=== PATIENT | female | born 1985 | race Caucasian/White ===

== ENCOUNTER → 2022-12-27 16:05 | Outpatient (BNVA) | payer MEDICAID, SELFPAY | PROVIDERS: Family Provider Family Medicine; PCP Nurse Practitioner Family; Visit Provider Nurse Practitioner Family | DX: R39.9 Unspecified symptoms and signs involving the genitourinary system (principal); R10.9 Unspecified abdominal pain; I10 Essential (primary) hypertension; E78.5 Hyperlipidemia, unspecified; R53.83 Other fatigue; L98.9 Disorder of the skin and subcutaneous tissue, unspecified | CPT/HCPCS: 81000 ==

== ENCOUNTER → 2022-12-30 08:39 | Outpatient (BNVA) | payer MEDICAID, SELFPAY | PROVIDERS: Family Provider Family Medicine; PCP Nurse Practitioner Family; Visit Provider Nurse Practitioner Family | DX: E78.5 Hyperlipidemia, unspecified (principal); I10 Essential (primary) hypertension; R53.83 Other fatigue; R10.9 Unspecified abdominal pain | CPT/HCPCS: 80053; 80061; 85025 ==

== ENCOUNTER 2023-01-11 06:03 | Outpatient (CLI) | payer MEDICAID, SELFPAY ==
--- NOTE | 2023-01-11 06:15 | US_ITS ---
WS: [id number] ULTRASOUND ABDOMEN LIMITED CLINICAL INFORMATION: R10.811 - Right upper quadrant abdominal tenderness COMPARISON: None. FINDINGS: Liver Size: Normal. Craniocaudal length: 15.0 cm. Echogenicity: Normal. Surface nodularity: None. Mass (size and location): None. Bile ducts Intrahepatic ducts: Normal. Common bile duct diameter: 0.3 cm. Gallbladder Normal. Gallstones: None. Gallbladder sludge: None. Gallbladder wall thickening: None. Pericholecystic fluid: None. Sonographic Reynaga sign: Absent. Pancreas Normal as visualized. Right kidney: Prominent extrarenal pelvis with dilated proximal ureter. Mild RIGHT hydronephrosis Hydronephrosis: Mild Size: 11.1 cm x 5.6 cm x 4.5 cm. Abdominal aorta and IVC Visualized portions are normal. Ascites: None. IMPRESSION: 1. Normal liver. 2. Normal gallbladder. 3. Normal common bile duct. 4. Prominent extrarenal pelvis with dilated proximal ureter. Mild RIGHT hydronephrosis. Recommend fu rther evaluation with noncontrast CT abdomen pelvis to assess for ureteral obstruction.
== END 2023-01-11 06:04 | disposition home or self-care (01) ==
LOC: RAD 06:04
PROVIDERS: Family Provider Family Medicine; PCP Nurse Practitioner Family; Visit Provider Nurse Practitioner Family
DX: R10.811 Right upper quadrant abdominal tenderness (principal); Z78.9 Other specified health status; Z98.891 History of uterine scar from previous surgery; N13.30 Unspecified hydronephrosis; N28.82 Megaloureter
CPT/HCPCS: 76705

== ENCOUNTER 2023-01-20 16:22 | Outpatient (CLI) | payer MEDICAID, SELFPAY ==
--- NOTE | 2023-01-20 16:30 | CTR_ITS ---
PROCEDURE INFORMATION: Exam: CT Abdomen And Pelvis Without Contrast Exam date and time: 01/20/2023 4:32 PM Age: 37 years old Clinical indication: Abdominal pain; Localized; Right lower quadrant (rlq); Prior surgery; Surgery date: 6+ months; Surgery type: Tubal, x3; Additional info: R93.5 - abnormal findings on diagnostic imaging of other . . . TECHNIQUE: Imaging protocol: Computed tomography of the abdomen and pelvis without contrast. Axial, coronal and sagittal reformatted images were created and reviewed. Radiation optimization: All CT scans at this facility use at least one of these dose optimization techniques: automated exposure control; mA and/or kV adjustment per patient size (includes targeted exams where dose is matched to clinical indication); or iterative reconstruction. REPORTING DATA: Count of CT and Cardiac NM exams in prior 12 months: This patient has received 0 known CTs and 0 known cardiac nuclear medicine studies in the 12 months prior to the current study. COMPARISON: US gall bladder 09999 01/11/2023 6:12 AM RADIATION DOSE METRICS: Total DLP (mGy-cm): 252.63 FINDINGS: Diaphragm: Elevated left hemidiaphragm. Liver: Unremarkable. Gallbladder and bile ducts: No radiodense gallstones. No biliary ductal dilatation. Pancreas: Unremarkable. Spleen: Unremarkable. Adrenal glands: Normal. No mass. Kidneys and ureters: No mass. No radiodense calculi. No hydronephrosis. Stomach and bowel: No bowel wall thickening. No obstruction. No pneumatosis. Appendix: Normal. Intraperitoneal space: No free fluid. No organized fluid collection. No free air. Vasculature: Minimal atherosclerotic disease. No aneurysm. Lymph nodes: No pathologically enlarged lymph nodes. Urinary bladder: Unremarkable as visualized. Reproductive: Enlarged, lobulated uterus, likely due to fibroids. Bones/joints: No acute osseous abnormality. Soft tissues: Unremarkable. CT/CT abdomen pelvis wo con [id number] IMPRESSION: 1. Limited noncontrast examination without CT evidence of acute intra-abdominal or pelvic pathology. 2. Additional findings, as above.
== END 2023-01-20 16:23 | disposition home or self-care (01) ==
PROVIDERS: Family Provider Family Medicine; PCP Nurse Practitioner Family; Visit Provider Nurse Practitioner Family
DX: R93.5 Abnormal findings on diagnostic imaging of other abdominal regions, including retroperitoneum (principal); R10.31 Right lower quadrant pain
CPT/HCPCS: 74176

== ENCOUNTER → 2023-02-23 16:52 | Outpatient (BNVA) | payer MEDICAID, SELFPAY | PROVIDERS: Family Provider Family Medicine; PCP Nurse Practitioner Family; Visit Provider Nurse Practitioner Women's Health | DX: N92.0 Excessive and frequent menstruation with regular cycle (principal); Z12.4 Encounter for screening for malignant neoplasm of cervix | CPT/HCPCS: 84439; 84443; 87624 ==

== ENCOUNTER → 2023-03-07 13:09 | Outpatient (BNVA) | payer MEDICAID, SELFPAY | PROVIDERS: Family Provider Family Medicine; PCP Nurse Practitioner Family; Visit Provider Nurse Practitioner Women's Health | DX: N92.0 Excessive and frequent menstruation with regular cycle (principal); D25.9 Leiomyoma of uterus, unspecified | CPT/HCPCS: 76830 ==

== ENCOUNTER → 2023-04-06 13:50 | Outpatient (BNVA) | payer MEDICAID, SELFPAY | PROVIDERS: Family Provider Family Medicine; PCP Nurse Practitioner Family; Visit Provider Obstetrics & Gynecology | DX: Z01.818 Encounter for other preprocedural examination (principal) | CPT/HCPCS: 81025; 88305 ==

== ENCOUNTER 2023-05-09 14:22 | Observation (INO) | payer MEDICAID, SELFPAY ==
--- NOTE | 2023-05-03 10:58 | P.ANESASSM_ITS ---
Pre-Anesthetic Assessment Height/Weight: Height 1.65 m Preop Diagnosis: fibroid uterus, pelvic pain, dysreunia, enlarged uterus Operation Date: 05/09/23 13:40 Proposed Procedures p Total abdominal hysterectomy 84895 N85.2,D25.9, N94.10(Not Applicable) - Jose Luis Lundy MD Familial anesthetic complications: None Social Tobacco and No alcohol Exam alert, oriented x 3, clear to auscultation bilaterally and regular rate & rhythm Airway Mallampati: Class I Dentition: false GI Gastroesophageal Reflux Disease Anesthetic Plan ASA status: 1 Anesthesia: General Risk of > 500 ml blood loss (7ml/kg in children): Yes, adequate IV access and fluids planned Medications/Allergies Home Medications Medication Instructions Recorded Confirmed Last Taken Type No Known Home Medications 02/23/23 05/03/23 Unknown History Allergies Allergy/AdvReac Type Severity Reaction Status Date / Time ondansetron AdvReac Mild ADR-Chest Verified 05/03/23 10:32 Pain PFSH Anesthesia Medical History No pertinent past medical history neghx: htn,dm,thyroid,dvt/pe PCP: Em Golden Surgical History H/O tubal ligation (~2008) At time of her last H/O lumpectomy (~2000) Right breast--- benign History of 2004 2006 2008 Family History Mother Pancreatic cancer, Onset Age: 51 Stroke Father Bladder cancer Grandmother Diabetes Colon cancer Grandfather Diabetes Denies family history of Ovarian cancer Prostate cancer Brain cancer Heart disease Hyperlipidemia Hypertension Uterine cancer Thyroid disease Female Reproductive History Date of last menstrual period: 04/19/23 Data Anesthesia 05/03/23 10:55 05/03/23 10:55 Cardiac Studies: 2 No Data to Display
[2023-05-03 11:00] LABS: Basophils % 0.2 %; Eosinophils # 0.1 10^3/uL (0.0-0.8); Eosinophils % 0.8 %; Hematocrit 42.6 % (36-47); Lymphocytes % 20.1 %; Mean Corpuscular HGB Conc 33.1 g/dL (30-55); Mean Corpuscular Volume 90.6 fl (85-98); Monocytes # 0.5 10^3/uL (0.2-0.9); Monocytes % 4.7 %; Neutrophils % 73.8 %; Nucleated Red Blood Cells % 0 %; Platelet Count 191 10^3/cmm (157-399); Red Cell Distribution Width 13.5 % (12.1-15.1); White Blood Count 9.89 10^3/uL (3.29-11.43)
[2023-05-03 11:14] LABS: Add Urine Microscopic? YES; Bacteria Urine TRACE /hpf; Bilirubin Urine Neg (Negative); Blood Urine Neg (Negative); Glucose Urine UA Norm (Normal); Ketones Urine Negative (Negative); Leukocyte Esterase Urine Negative (Negative); Nitrate Urine Negative (Negative); Protein Urine Neg (Negative); RBC Urine RARE /hpf (0-2); Squamous Epithelial Cell Urine 15-25 /hpf (0-5); Urine Appearance SL Hazy (CLEAR); Urine Color Yellow (Yellow); Urobilinogen Urine Neg (Negative); pH Urine 6 (5-7)
[2023-05-03 11:15] LABS: Add Urine Culture? No; Amorphous Sediment Urine 3+ /hpf; Mucus Urine 3+ /hpf
[2023-05-03 11:25] LABS: Alanine Aminotransferase 18 U/L (0-33); Albumin Level 4.5 g/dL (3.5-5.2); Alkaline Phosphatase 53 U/L (35-105); Anion Gap 13.5 (5-19); Aspartate Amino Transferase 15 U/L (0-32); Blood Urea Nitrogen 13 mg/dL (6-20); Carbon Dioxide 25 mmol/L (22-29); Chloride 102 mmol/L (98-107); Globulin 2.3 g/dL (1.3-4.6); Glomerular Filtration Rate 111.3 mL/min (90-130); Glucose 88 mg/dL (65-115); Osmolality Calculated 282 mOsm/kg (285-295); Potassium 4.5 mmol/L (3.5-5.1); Sodium 136 mmol/L (136-145); Total Bilirubin 0.3 mg/dL (0.15-1.2); Total Protein 6.8 g/dL (6.6-8.7)
[2023-05-03 20:09] LABS: OR HCG Qualitative Urine Negative (Negative)
[2023-05-09] VITALS (22 sets, daily range): BP systolic 99–121; BP diastolic 57–75; PULSE 61–76; RESP 16–18; TEMP 36.2–36.8; O2SAT 96–100; BMI 22.6
[2023-05-09 07:42] LABS: OR HCG Qualitative Urine Negative (Negative)
[2023-05-09] MEDS: scopolamine 1.5 Patch 1 PATCH TRANSDERMA (08:00)
[2023-05-09] MEDS: sodium chloride 0.9% 500 ML IV (08:01)
[2023-05-09] MEDS: sodium chloride 0.9% 1,000 ML 30 ML IV (08:01)
--- NOTE | 2023-05-09 08:09 | P.ANESUD_ITS ---
Pre-Anesthetic Update Pre-Anesthetic Assessment: Date of Surgery/Procedure: 05/09/23 Preop Debra gnosis: fibroid uterus, pelvic pain, dysreunia, enlarged uterus Proposed Procedure: Operation Date: 05/09/23 09:00 Proposed Procedures p Total abdominal hysterectomy 75728 N85.2,D25.9, N94.10(Not Applicable) - Jose Luis Lundy MD Any changes to Pre-Anesthetic Assessment?: No Last Intake: Intake Last Liquid Date 05/08/23 Last Liquid Time 23:55 Last Solid Date 05/08/23 Last Solid Time 21:00 Vitals: Temperature 97.6 F 05/09/23 07:50 Temperature Source Temporal Artery S can 05/09/23 07:50 Pulse Rate 70 05/09/23 07:50 Respiratory Rate 16 05/09/23 07:50 Blood Pressure 116/74 05/09/23 07:50 Blood Pressure Padmini n 88 05/09/23 07:50 Pulse Oximetry 99 05/09/23 07:50 Oxygen Delivery Me thod Room Air 05/09/23 07:45 Exam: Pre-Anes Outpt Exam: alert and oriented x 3 Cardiac Studies: No Data to Display
--- NOTE | 2023-05-09 08:48 | W.PM.OPSUD ---
Surgery/Procedure H&P Update DATE OF PROCEDURE: May 09, 2023 DATE H&P PERFORMED: 05/03/23 H&P UPDATE INFORMATION: I have reviewed H&P completed within last 30 days, I have examined patient prior to procedure and No changes to prior documentation PREOP DIAGNOSIS: fibroid uterus, pelvic pain, dysreunia, enlarged uterus PLANNED PROCEDURE: Operation Date: 05/09/23 09:00 Proposed Procedures p Total abdominal hysterectomy 96665 N85.2,D25.9, N94.10(Not Applicable) - Jose Luis Lundy MD
[2023-05-09] MEDS: ceFOXitin 2,000 MG in sodium chloride 0.9% (plus) 50 ML 100 MG IV (08:53)
[2023-05-09] MEDS: BUPivacaine 0.5% INJ 30 mL INJECTION (09:29)
[2023-05-09] MEDS: BUPivacaine liposome 13.3 mg/mL SDV 10 mL 266 MG INJECTION (09:30)
--- NOTE | 2023-05-09 10:51 | P.OP_ITS ---
Operative Report Date of procedure: May 09, 2023 Pre-op diagnosis: Fibroid uterus Post-op diagnosis: same Post-op findings: Enlarged uterus Procedure done: Total abdominal hysterectomy Specimens removed/disposition: Uterus Surgeon: Jose Luis Lundy MD Estimated blood loss (mL): 200 IV fluids (mL): 1,600 Urine output (mL): 300 Complications: None Findings: Enlarged uterus Procedure: The patient was taken to the operating room, and after adequate level of general anesthesia was achieved, the patient was placed in the Trendelenburg position, prepped and draped in the usual sterile fashion. Subsequently, a Pfannenstiel incision was made and the incision was taken down to the fascia. The fascia was opened up sharply. The fascia was extended to the length of the incision using the Fry scissors. At this time, the rectus muscles were dissected from the fascia superiorly and inferiorly to the symphysis pubis. The midline rectus muscles were opened sharply and extended superiorly and inferiorly. The peritoneum was visualized, grasped, opened sharply, and extended superiorly and inferiorly towards the bladder. The abdominal contents were packed superiorly away from the operative site using the lap packs. At this time, the pelvic o rgans were noted. The inferior and superior blades were placed in place on the Sumeet self-retaining retractor. Bowel was packed away from the operative site. The fundus of the uterus was then grasped with a triple-tooth tenaculum and retracted out of the pelvic cavity into the abdominal site. At this point, Dorota clamps were placed in both right and left adnexal regions. Subsequently, using the LigaSure cautery unit, the round ligaments were grasped, cauterized, and dissected. The bladder flap was then formed and the bladder flap was pushed away down anteriorly over the lower uterine segment, pushed away from the operative site on both the right and left sides. Subsequently, the posterior leaf of the broad ligament was opened sharply and the LigaSure instrument was then placed below the level of the ovary in both the right and left side, care being taken not to damage bowel or uterus and the infundibulopelvic ligament was then grasped, cauterized, and again dissected. Further dissection of the broad ligament was carried down posteriorly towards the uterine vessels. The bladder was pushed inferiorly down towards the vagina. Subsequently, the uterine vessels were then grasped again with the LigaSure machine, cauterized, and dissected. The cardinal ligaments were further grasped, dissected, and suture ligated, again with the LigaSure machine. At that point, the LigaSure machine instrument was stopped and straight Zeppelin clamps were used on the cardinal ligaments down towards the uterosacral ligaments. The cardinal ligaments were grasped, dissected with a scalpel and then ligated with transfixion sutures with #1 Vicryl suture down to the uterosacral ligaments. The uterosacral ligaments were grasped, dissected, and suture ligated again with #1 Vicryl suture and transfixion sutures. At that time, the bladder had been pushed over the vagina and at this time right-angle Zeppelin clamps were placed on the vagina at the level of the cervix, and using the Kellee scissors, the cervix was dissected away from the vagina. At this time, the vaginal cuff was then closed using interrupted sutures of #1 Vicryl suture from the midline to each lateral corner. After the good hemostasis had been achieved in the vaginal cuff, both the right and left adnexa was visualized and no more bleeding was noted. The cuff was intact with no bleeding noted. The bladder was visualized and no bleeding was noted. Seprafilm was then placed over the vaginal cuff. The Sumeet self- retaining retractor was removed as well as the anterior and inferior blades. The lap packs were removed, and at this time, general closure of the abdomen was carried out. The peritoneum was closed with a 2-0 Vicryl suture and continuous running suture. The fascia was closed using a #1 Vicryl suture from each corner to the midline. Subcutaneous tissue was cauterized. No bleeding was noted. The subcutaneous tissue was then reapproximated using plain sutures and interrupted sutures, and the skin was closed using Insorb absorbable subcuticular bhavin. The patient tolerated the procedure well and was transferred to the recovery room in excellent condition. The patient returned to the floor for recovery.
[2023-05-09] MEDS: metoclopramide 5 mg/mL SDV 2 mL 10 MG IVP ×2 (12:01→12:08)
--- NOTE | 2023-05-09 14:02 | PC.NURSE ---
1400, report given to weaka2
[2023-05-09] MEDS: dextrose 5%-lactated ringers 1,000 ML 125 ML IV ×2 (15:11→22:03)
[2023-05-09] MEDS: ketorolac 30 mg/mL INJ IVP ×2 (15:12→20:51)
--- NOTE | 2023-05-09 16:28 | ANE.PACU2 ---
Inpatient post-anesthesia follow up: Airway intact: Yes Vital signs: Temperature 98.2 F Pulse Rate 64 Respiratory Rate 18 Blood Pressure 114/70 Pulse Oximetry 98 Oxygen Delivery Me thod Room Air Oxygen Flow Rate 6 Fraction of Inspir ed Oxygen Hydration adequate: Yes Nausea and vomiting: No Pain level: 3 Mental status: Baseline
[2023-05-09] MEDS: docusate sodium 100 mg Capsule PO (17:23)
[2023-05-09] MEDS: acetaminophen 325 mg Tablet 650 MG PO (17:36)
[2023-05-09] MEDS: HYDROcodone-acetaminophen 5-325 mg Tablet PO (18:56)
[2023-05-10] VITALS: BP 95/59; PULSE 59; RESP 18; TEMP 36.8; O2SAT 97
[2023-05-10] MEDS: acetaminophen 325 mg Tablet 650 MG PO ×2 (00:03→19:27)
[2023-05-10] MEDS: ketorolac 30 mg/mL INJ IVP ×2 (03:22→09:29)
[2023-05-10 03:51] VITALS: BP 103/60; PULSE 65; RESP 18; TEMP 36.8; O2SAT 96
--- NOTE | 2023-05-10 04:41 | PC.NURSE ---
Pt ambulated twice at about 100ft each time. Tolerated well, pain mild.
[2023-05-10] MEDS: dextrose 5%-lactated ringers 1,000 ML 125 ML IV ×2 (04:59→20:33)
[2023-05-10 05:15] LABS: Hematocrit 33.8 % (36-47); Mean Corpuscular HGB Conc 32.2 g/dL (30-55); Mean Corpuscular Hemoglobin 29.5 pg (27-33); Mean Corpuscular Volume 91.6 fl (85-98); Mean Platelet Volume 10.3 fL (7.4-10.4); Platelet Count 116 10^3/cmm (157-399); Red Blood Count 3.69 10^6/uL (3.85-5.65); Red Cell Distribution Width 13.6 % (12.1-15.1); White Blood Count 9.68 10^3/uL (3.29-11.43)
[2023-05-10] MEDS: HYDROcodone-acetaminophen 5-325 mg Tablet PO ×3 (05:55→20:33)
[2023-05-10 07:32] VITALS: BP 102/62; PULSE 63; RESP 13; TEMP 36.5; O2SAT 97
--- NOTE | 2023-05-10 08:42 | PM.PN ---
Subjective Subjective: Mrs. Javier 37-year-old female is status post total abdominal hysterectomy postoperative day 1 Vitals/I&O/Wt Last Vital Signs Temp 97.7 F 05/10/23 07:32 Pulse 63 05/10/23 07:32 Resp 13 05/10/23 07:32 BP 102/62 05/10/23 07:32 Pulse Ox 97 05/10/23 07:32 O2 Del Method Room Air 05/10/23 07:32 O2 Flow Rate 6 05/09/23 11:10 05/09/23 05/10/23 05/10/23 22:59 06:59 14:59 Intake Total 1218.333 / 3368.333 1310 / 4678.333 Output Total 1000 / 1800 800 / 2600 Balance 218.333 / 1568.333 510 / 2078.333 Weight last 48 hrs Weight 66.791 kg Weight 63.503 kg Weight 63.503 kg Physical Exam Narrative: GA: Alert and oriented ?3. HEENT: WNL. Heart: Regular rate and rhythm. Lungs: Clear to auscultation bilaterally. Abdomen: Bowel sounds present, nontender, minimal tenderness, incision clean and dry, no redness, pain or edema. 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 Extremities: No edema, no cyanosis, no calves pain. Urinary Catheter Management: Bliss: Cath Placed During This Visit: yes Urinary Catheter Date of Insertion: 05/09/23 Urinary Catheter Time of Insertion: 07:12 Data 05/10/23 05:00 05/03/23 10:55 A&P Assessment and plan (1) Status post abdominal hysterectomy: Mrs. Sadler 37-year-old female is status post total abdominal hysterectomy postoperative day 1. She is afebrile hemodynamically stable. Tolerating liquids well. Ambulating without difficulty. Plan Continue postop observation. Advance diet Encouraged ambulation. Attestations Medical Necessity Statement*: In my professional opinion poor admitting diagnosis. Coding Level of Care Code Acute Code for Chg Fwd Diagnoses Status post abdominal hysterectomy Z90.710
[2023-05-10] MEDS: docusate sodium 100 mg Capsule PO ×2 (09:29→17:48)
[2023-05-10] MEDS: ibuprofen 800 mg tablet PO ×2 (12:07→17:47)
[2023-05-10 12:10] VITALS: BP 98/63; PULSE 79; RESP 18; TEMP 36.9; O2SAT 96
[2023-05-10 16:27] VITALS: BP 98/61; PULSE 62; RESP 18; TEMP 36.7; O2SAT 98
[2023-05-10 19:02] VITALS: BP 100/64; PULSE 72; RESP 16; TEMP 36.8; O2SAT 97
[2023-05-11 00:54] VITALS: BP 100/63; PULSE 71; RESP 16; TEMP 36.9; O2SAT 97
[2023-05-11] MEDS: ibuprofen 800 mg tablet PO ×2 (03:06→10:48)
[2023-05-11 04:00] VITALS: BP 99/63; PULSE 66; RESP 19; TEMP 36.7; O2SAT 96
[2023-05-11] MEDS: dextrose 5%-lactated ringers 1,000 ML 125 ML IV (04:16)
[2023-05-11] MEDS: HYDROcodone-acetaminophen 5-325 mg Tablet PO ×2 (04:18→12:05)
[2023-05-11 05:40] VITALS: BMI 23.8
[2023-05-11 08:00] VITALS: BP 104/66; PULSE 63; RESP 16; TEMP 36.7; O2SAT 97
[2023-05-11] MEDS: docusate sodium 100 mg Capsule PO (08:25)
[2023-05-11 12:00] VITALS: PULSE 76; RESP 15; TEMP 36.4; O2SAT 98
--- NOTE | 2023-05-11 12:07 | P.DS_ITS ---
Discharge Providers CREDIT AND LOAN COLLECTIONS SUPERVISOR Date of Admission: 05/09/23 14:22 Date of Discharge: 05/11/23 Attending Provider at Admission: Jose Luis Lundy MD Attending Provider at Discharge: Jose Luis Lundy MD Primary CREDIT AND LOAN COLLECTIONS SUPERVISOR: Jose Luis Lundy MD Primary Care Provider: EVERARDO Sandoval Diagnoses at Discharge Discharge Diagnosis (1) Status post abdominal hysterectomy: Status: Acute Reason for Visit Reason for Visit: D25.9, N85.2, N94.10 Hospital Course Hospital Course Mrs. Sadler 37-year-old female with a history of abnormal uterine bleeding and uterine fibroid. Admitted for scheduled total vaginal hysterectomy. The procedure was performed without complication. Overnight observation was uneventful. She is afebrile and hemodynamically stable postoperative day 2. Tolerating diet well. Ambulating without difficulty. Pain under control with medication. She was counseled regarding pelvic rest for 6 weeks (no sex, no tampons, no vaginal douches). Return to the emergency room if any fever, increased bleeding or pain. Physical Exam Narrative: GA: Alert and oriented ?3. HEENT: WNL. Heart: Regular rate and rhythm. Lungs: Clear to auscultation bilaterally. Abdomen: Bowel sounds present, minimal tenderness, incision clean and dry, no redness, pain or edema. 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 Extremities: No edema, no cyanosis, no calves pain. Urinary Catheter Management: Bliss: Cath Placed During This Visit: yes Urinary Catheter Date of Insertion: 05/09/23 Urinary Catheter Time of Insertion: 07:12 History History History 3 Term 3 0 Miscarriages/Ectopic 0 Living Children 3 Discharge Data Studies Completed and Pending Pending at discharge Category Date Time Status Pathology: Surgical [PTH] Routine Pth 05/09/23 10:46 Received Laboratory Results WBC 9.68 10^3/uL (3.29-11.43) 05/10/23 05:00 RBC 3.69 10^6/uL (3.85-5.65) L 05/10/23 05:00 Hgb 10.90 g/dL (11.27-16.99) L 05/10/23 05:00 Hct 33.8 % (36-47) L 05/10/23 05:00 MCV 91.6 fl (85-98) 05/10/23 05:00 MCH 29.5 pg (27-33) 05/10/23 05:00 MCHC 32.2 g/dL (30-55) 05/10/23 05:00 RDW 13.6 % (12.1-15.1) 05/10/23 05:00 Plt Count 116 10^3/cmm (157-399) L 05/10/23 05:00 MPV 10.3 fL (7.4-10.4) 05/10/23 05:00 Neut % (Auto) 73.8 % 05/03/23 10:55 Lymph % (Auto) 20.1 % 05/03/23 10:55 Dukes % (Auto) 4.7 % 05/03/23 10:55 Eos % (Auto) 0.8 % 05/03/23 10:55 Baso % (Auto) 0.2 % 05/03/23 10:55 Neut # (Auto) 7.30 10^3/uL (1.8-7.7) 05/03/23 10:55 Lymph # (Auto) 2.0 10^3/uL (0.8-4.8) 05/03/23 10:55 Dukes # (Auto) 0.5 10^3/uL (0.2-0.9) 05/03/23 10:55 Eos # (Auto) 0.1 10^3/uL (0.0-0.8) 05/03/23 10:55 Baso # (Auto) 0.0 10^3/uL (0.0-0.1) 05/03/23 10:55 Nucleated RBC % (auto) 0 % 05/03/23 10:55 Nucleated RBCs # 0.0 /100WBC 05/03/23 10:55 Sodium 136 mmol/L (136-145) 05/03/23 10:55 Potassium 4.5 mmol/L (3.5-5.1) 05/03/23 10:55 Chloride 102 mmol/L (98-107) 05/03/23 10:55 Carbon Dioxide 25 mmol/L (22-29) 05/03/23 10:55 Anion Gap 13.5 (5-19) 05/03/23 10:55 BUN 13 mg/dL (6-20) 05/03/23 10:55 Creatinine 0.6 mg/dL (0.5-0.9) 05/03/23 10:55 GFR Calculation 111.3 mL/min (90-130) 05/03/23 10:55 Glucose 88 mg/dL (65-115) 05/03/23 10:55 Calculated Osmolality 282 mOsm/kg (285-295) L 05/03/23 10:55 Calcium 9.0 mg/dL (8.5-10.5) 05/03/23 10:55 Total Bilirubin 0.3 mg/dL (0.15-1.2) 05/03/23 10:55 AST 15 U/L (0-32) 05/03/23 10:55 ALT 18 U/L (0-33) 05/03/23 10:55 Alkaline Phosphatase 53 U/L (35-105) 05/03/23 10:55 Total Protein 6.8 g/dL (6.6-8.7) 05/03/23 10:55 Albumin 4.5 g/dL (3.5-5.2) 05/03/23 10:55 Globulin 2.3 g/dL (1.3-4.6) 05/03/23 10:55 Urine Color Yellow (Yellow) 05/03/23 10:40 Urine Appearance Sl hazy (CLEAR) A 05/03/23 10:40 Urine pH 6 (5-7) 05/03/23 10:40 Ur Specific [place] 1.020 (1.005-1.030) 05/03/23 10:40 Urine Protein Neg (Negative) 05/03/23 10:40 Urine Glucose (UA) Norm (Normal) 05/03/23 10:40 Urine Ketones Negative (Negative) 05/03/23 10:40 Urine Blood Neg (Negative) 05/03/23 10:40 Urine Nitrate Negative (Negative) 05/03/23 10:40 Urine Bilirubin Neg (Negative) 05/03/23 10:40 Urine Urobilinogen Neg mg/dL (Negative) 05/03/23 10:40 Ur Leukocyte Esterase Negative (Negative) 05/03/23 10:40 Urine RBC Rare /hpf (0-2) 05/03/23 10:40 Urine WBC None /hpf (0-5) 05/03/23 10:40 Ur Squamous Epith Cells 15-25 /hpf (0-5) H 05/03/23 10:40 Amorphous Sediment 3+ /hpf 05/03/23 10:40 Urine Bacteria Trace /hpf (NONE) 05/03/23 10:40 Urine Mucus 3+ /hpf 05/03/23 10:40 Urine HCG, Qual Negative (Negative) 05/09/23 07:41 Blood Type B Positive 05/09/23 07:37 Rho(D) Type Rh positive 05/09/23 07:37 Antibody Screen Negative 05/09/23 07:37 Vitals Last Vital Signs Temp 98.0 F 05/11/23 08:00 Pulse 63 05/11/23 08:00 Resp 16 05/11/23 08:00 BP 104/66 05/11/23 08:00 Pulse Ox 97 05/11/23 08:00 O2 Del Method Room Air 05/11/23 08:00 O2 Flow Rate 6 05/09/23 11:10 Results Labs OB ([facility]): Blood Type B Positive 05/09/23 Antibody Screen Negative 05/09/23 Hct 33.8 % (36-47) L 05/10/23 Hgb 10.90 g/dL (11.27-16.99) L 05/10/23 Rho(D) Type Rh positive 05/09/23 Plt Count 116 10^3/cmm (157-399) L 05/10/23 TSH 1.11 uIU/mL (0.27-4.20) 02/23/23 Free T4 1.26 ng/dL (0.82-1.77) 02/23/23 HCG, Qual Negative (Negative) 04/06/23 Pap Smear Interpret See note A 02/23/23 Discharge Plan Discharge Patient Disposition: Home Condition: Stable Prescriptions: New hydrocodone-acetaminophen 5-325 mg tablet 1 tab PO Q4H PRN (Reason: pain) Qty: 30 0RF docusate sodium [Colace] 100 mg capsule 100 mg PO BID Qty: 60 0RF ibuprofen 800 mg tablet 800 mg PO TID PRN (Reason: pain) Qty: 60 0RF acetaminophen 325 mg capsule 325 mg PO Q4H PRN (Reason: fever or pain) Qty: 60 0RF ferrous sulfate [Iron (ferrous sulfate)] 325 mg (65 mg iron) tablet 325 mg PO BID Qty: 60 0RF Continued No Known Home Medications Discharge Orders: Discharge Order (Routine); Ordered 05/11/23 Ordered By: Jose Luis Lundy Referrals: Jos eLuis Lundy MD [Physician] - 2 weeks Discharge Diet: Usual diet Discharge Activity: Limit activity as instructed Patient Instructions: Vaginal Hysterectomy (GEN), Opioid Safety Activity Restrictions/Additional Instructions: 1. Please call [facility] on next working day to make your post-operative appointment in 2 weeks. 2. Please stay home until you come back to the clinic on first post- hospatilization check up. 3. Please follow instructions on your medications CAREFULLY. 4. If you have abdominal incision, do not cover it unless dressing is necessary because of drainage. OK to shower, but avoid bath. Leave steri-strips until they fall off. If they are still on one week after surgery, you may remove them. 5. If you had vaginal surgery or vaginal repair, Dr. Lundy may instruct you to take SITZ bath. 6. Yellow, blood tinged odorous vaginal discharge is usually normal after hysterectomy or vaginal surgeries. 7. No SEXUAL INTERCOURSE, tampons, or douches until you are completely released from the post-operative care. 8. Avoid constipation by eating right and maybe using some Metamucil or Milk of Magnesia. 9. All prescription refills are given during the working hours. Please do no wait till it runs out. Call the clinic at [phone] before your medication runs out. The clinic will get in touch with your doctor to prescribe medications if necessary. 10. Please remain within 40 mile radius from our hospital because emergencies do happen now and then during the post-operative period. 11. If you have stairs at home, take one step at a time slowly and minimize the number of trips. It helps to stay in one floor for the next few days. No lifting except what you can lift by one hand until you are released from the post-operative care. 12. Driving is discouraged until you are well healed. It may be 3-4 weeks before you feel strong enough to drive. You should be able to turn and look through the rear window without pain and you should be able to push the brake pedal very hard without pain before you drive. No fast rules, but SAFETY should be your primary concern. DO NOT drive if you are on sedating medications such as narcotics. 13. Call the clinic (during working hours) to make urgent appointment or go to the Emergency room, if any of the following occurs: i. Vaginal bleeding becomes heavy, more than a period. ii. Incision becomes red and sore, or drains pus. iii. Your TEMPERATURE is over 100.4F or you have chill. iv. IV site becomes red and swollen (a little ``knot?? is usually OK) v. Persistent nausea and vomiting vi. Persistent constipation or diarrhea vii. Rash or allergic reaction to medications. Discharge Attestations CREDIT AND LOAN COLLECTIONS SUPERVISOR Time Spent in Discharge Care*: greater than 30 min Coding Level of Care Code Acute Code for Chg Fwd Diagnoses Status post abdominal hysterectomy Z90.710
[2023-05-11 12:19] VITALS: PULSE 76; RESP 15; TEMP 36.4; O2SAT 98
== END 2023-05-11 13:35 | disposition home or self-care (01) ==
LOC: MEDSURG 14:23
PROVIDERS: Student in an Organized Health Care Education/Training Program; Admitting Provider Obstetrics & Gynecology; PCP Nurse Practitioner Family; Visit Provider Obstetrics & Gynecology
PROC: 0UT90ZZ Resection of Uterus, Open Approach (ICD-10-PCS; CPT 58150; 2023-05-09 09:00)
DX: D25.9 Leiomyoma of uterus, unspecified (principal); N87.1 Moderate cervical dysplasia; K21.9 Gastro-esophageal reflux disease without esophagitis; F17.200 Nicotine dependence, unspecified, uncomplicated; N92.0 Excessive and frequent menstruation with regular cycle; N94.10 Unspecified dyspareunia
CPT/HCPCS: 58290; 36415; 51702; 80053; 81001; 81025; 84703; 85025; 85027; 86850; 86900; 88307; C9290; G0378; J0694; J1100; J1170; J1200; J1885; J2250; J2371; J2704; J2710; J2765; J2795; J3490; J7030; J7040; J7121